=== PATIENT | male | born 1970 | race Two or more races ===

== ENCOUNTER 2019-07-11 14:38 | Emergency (ER) | payer MEDICAID ==
[~2019-07-11] VITALS: Ht 182.9 cm; Wt 75.0 kg
[2019-07-11 14:45] VITALS: BP 131/80
== END 2019-07-11 15:46 | disposition home or self-care (01) ==
LOC: ER 14:38
DX: M54.2 Cervicalgia (principal); Z53.21 Procedure and treatment not carried out due to patient leaving prior to being seen by health care provider